=== PATIENT | female | born 1970 | race Caucasian/White ===

== ENCOUNTER 2019-07-24 12:24 | Inpatient (IN) ==
[2019-07-24 13:17] LABS: Basophils % 0.8 %; Eosinophils # 0.1 K/mcL (0.0-0.6); Eosinophils % 1.6 %; Hemoglobin 12.2 g/dL (11.5-15.4); Lymphocytes # 1.5 K/mcL (0.6-4.6); Lymphocytes % 39.1 %; Mean Corpuscular HGB Conc 32.1 g/dL (31.6-35.5); Mean Corpuscular Hemoglobin 30.2 pg (28.0-33.3); Mean Corpuscular Volume 94.1 fL (83.0-100.0); Mean Platelet Volume 9.1 fL (9.4-12.4); Monocytes # 0.3 K/mcL (0.0-1.3); Monocytes % 7.8 %; Platelet Count 250 K/mcL (140-400); Red Blood Count 4.04 M/mcL (3.82-4.97); Red Cell Distribution Width 12.6 % (11.5-14.5); Segmented Neutrophils % 50.7 %; White Blood Count 3.9 K/mcL (4.3-11.1)
[2019-07-24 13:36] LABS: Acetaminophen < 10 mcg/mL (10-20); BUN/Creatinine Ratio 10 (6-26); Blood Urea Nitrogen 9 mg/dL (6-20); Calcium 8.7 mg/dL (8.6-10.3); Carbon Dioxide 29 mEq/L (23-29); Chloride 105 mEq/L (98-107); Ethanol < 10 mg/dL (Less than 10); Glucose 91 mg/dL (70-105); Osmolality,Calculated 288 (280-300); Potassium 3.9 mEq/L (3.5-5.1); Salicylate < 2.5 mg/dL (15.0-30.0); Sodium 140 mEq/L (136-145); eGFR For African Americans > 60 (> 60); eGFR For Non-African Americans > 60 (> 60)
[2019-07-24 14:40] LABS: Bilirubin,Urine Negative (Negative); Blood,Urine Negative (Negative); Clarity,Urine Clear (Clear); Color,Urine Orange (Yellow); Glucose,Urine (UA) Normal (Normal); Ketones,Urine Negative (Negative); Leukocyte Esterase,Urine Small (Negative); Nitrite,Urine Positive (Negative); PH,Urine 5.5 pH Units (5.0-8.0); Protein,Urine Negative (Neg-Trace); Specific Gravity,Urine 1.009 (1.010-1.025); Urobilinogen,Urine Normal (Normal)
[2019-07-24 14:41] LABS: Bacteria,Urine None Seen per hpf (None-Few); Hyaline Casts,Urine None Seen per lpf (None-Few); Squamous Epithelial Cell,Urine None Seen per lpf (None-Few); WBC,Urine 0-3 per hpf (0-3)
[2019-07-24] MEDS ORDERED: CefTRIAXone 1,000 MG VIAL IM ONE (15:03)
[2019-07-24 15:05] LABS: Transitional Epi Cells,Urine Few per hpf (None-Few)
[2019-07-24] MEDS ORDERED: Lidocaine -MPF 1% 2 ML VIAL ONE (15:07)
[2019-07-24 15:13] LABS: Amphetamine Screen,Urine Negative ng/mL (Cutoff=1000); Barbiturate Screen,Urine Negative ng/mL (Cutoff=200); Benzodiazepines Screen,Urine Positive ng/mL (Cutoff=200); Cannabinoid Screen,Urine Negative ng/mL (Cutoff = 50); Cocaine Screen,Urine Negative ng/mL (Cutoff= 300); Opiate Screen,Urine Negative ng/mL (Cutoff=300); Phencyclidine Screen,Urine Negative ng/mL (Cutoff=25)
[2019-07-24] MEDS ORDERED: *HR* LORazepam 1 MG TABLET PO PRN (16:52)
[2019-07-24] MEDS ORDERED: Mag Hydrox/Al Hydrox/Simeth 30 ML UDC PO PRN (16:52)
[2019-07-24] MEDS ORDERED: MOM Conc 10 ML UD.LIQ PO PRN (16:52)
[2019-07-24] MEDS ORDERED: Haloperidol Lactate 5 MG/ML VIAL IM PRN (16:52)
[2019-07-24] MEDS ORDERED: traZODone 50 MG TABLET PO PRN (16:52)
[2019-07-24] MEDS ORDERED: hydrOXYzine pamoate 25 MG CAPSULE PO PRN (16:52)
[2019-07-24] MEDS ORDERED: *HR* LORazepam 2 MG/ML VIAL IM PRN (16:52)
[2019-07-25] MEDS: Acetaminophen 325 MG TABLET PO PRN (12:41)
[2019-07-25] MEDS ORDERED: traZODone 50 MG TABLET PO SCH (21:00)
[2019-07-26] MEDS: Acetaminophen 325 MG TABLET PO PRN (08:49)
[2019-07-26 15:28] VITALS: BP 120/84
== END 2019-07-26 11:20 | disposition home or self-care (01) | DRG 880 ==
LOC: EMEROOARM 12:24 → 1ANU 16:51
PROVIDERS: ADMIT Psychiatry & Neurology Psychiatry; ATTEND Psychiatry & Neurology Psychiatry